=== PATIENT | female | born 2000 | race American Indian/Alaskan Native ===

== ENCOUNTER 2021-04-13 08:00 | Outpatient (CLI) | payer OTHER | END 2021-04-13 08:30 | disposition home or self-care (01) | LOC: PPH VACUNA 08:00 | PROVIDERS: ATTEND Emergency Medicine Pediatric Emergency Medicine | DX: Z23 Encounter for immunization (principal) ==

== ENCOUNTER 2023-06-07 07:39 | Outpatient (CLI) | payer OTHER | END 2023-06-07 07:54 | disposition home or self-care (01) | LOC: TOM 07:39 | PROVIDERS: ATTEND Colon & Rectal Surgery | DX: R10.31 Right lower quadrant pain (principal) ==